=== PATIENT | male | born 1980 | race Caucasian/White ===

== ENCOUNTER 2021-04-27 15:02 | Emergency (ER) | payer SELFPAY ==
[~2021-04-27] VITALS: Ht 190.5 cm; Wt 122.5 kg
[2021-04-27] MEDS ORDERED: DEXAMETHASONE 4 MG TAB PO STA (15:17)
[2021-04-27] MEDS ORDERED: ONDANSETRON HCL INJ 2MG/ML 2ML 2 MG/ML VIAL IV STA (15:17)
[2021-04-27] MEDS ORDERED: DIPHENHYDRAMINE HCL INJ 50 MG/ML VIAL IM ONE (15:30)
[2021-04-27] MEDS ORDERED: FAMOTIDINE 20 MG TAB PO ONE (15:30)
[2021-04-27] MEDS ORDERED: ONDANSETRON HCL 4 MG ORAL DISINTEGRATING TAB PO ONE (15:30)
== END 2021-04-27 16:17 | disposition home or self-care (01) ==
LOC: ER 15:17
DX: U07.1 COVID-19 (principal); R21 Rash and other nonspecific skin eruption
CPT/HCPCS: 99282; J1200; J8540; Q0162; U0002